=== PATIENT | male | born 1985 | race African-American/Black ===

== ENCOUNTER 2016-11-20 17:32 | Emergency (ER) | payer MEDICAID ==
[2016-11-20] MEDS ORDERED: ALBUTEROL/IPRATROPIUM 1 VIAL SOL INH ONE (17:50)
[2016-11-20] MEDS ORDERED: ALBUTEROL/IPRATROPIUM 1 VIAL SOL ONE (17:53)
[2016-11-20 18:11] VITALS: O2SAT 96
[2016-11-20 18:19] VITALS: TEMP 98.4
[2016-11-20] MEDS ORDERED: PREDNISONE 20 MG TAB PO ONE (18:35)
[2016-11-20] MEDS ORDERED: PREDNISONE 20 MG TAB ONE (18:39)
[2016-11-20 18:46] VITALS: BP 117/98; PULSE 70; RESP 22
== END 2016-11-20 18:50 | disposition home or self-care (01) | DRG 203 ==
LOC: ED 17:32
DX: J45.901 Unspecified asthma with (acute) exacerbation (principal)
CPT/HCPCS: 99283; J7620